=== PATIENT | female | born 1965 | race Hispanic/Latino ===

== ENCOUNTER 2018-08-16 10:05 | Emergency (ER) | payer OTHER ==
[~2018-08-16] VITALS: Ht 157.5 cm; Wt 58.1 kg
[2018-08-16] MEDS ORDERED: ESTRADIOL0.5 MG PO (11:02)
[2018-08-16] MEDS ORDERED: NEXIUM20 MG PO (11:02)
[2018-08-16] MEDS ORDERED: [UNRECOGNIZED DRUG - OTHER] PO (11:05)
[2018-08-16] MEDS ORDERED: SUCRALFATE1 GM/10 ML PO (12:54)
== END 2018-08-16 13:19 | disposition home or self-care (01) ==
LOC: ED 10:05
DX: K27.9 Peptic ulcer, site unspecified, unspecified as acute or chronic, without hemorrhage or perforation (principal); Z88.8 Allergy status to other drugs, medicaments and biological substances; Z79.899 Other long term (current) drug therapy
CPT/HCPCS: 74177; 80053; 81001; 83690; 84703; 85025; 87210; 87491; 87591; 96374; 99284-25; J2405; J7030